=== PATIENT | female | born 1990 | race Hispanic/Latino ===

== ENCOUNTER 2017-12-08 14:15 | Emergency (ER) | payer OTHER ==
[2017-12-08 14:23] VITALS: TEMP 97.7; O2SAT 100
[2017-12-08] MEDS ORDERED: Sodium Chloride 0.9% 2,000 ML IV STA (14:40)
--- NOTE | 2017-12-08 14:42 | ED PDOC ---
HPI: Abdomen Time Seen by Provider: 12/08/17 14:41 Chief Complaint (Nursing): GI Problem Chief Complaint (Provider): VOMITING/DIARRHEA History Per: Patient (27 Y/O FEMALE HERE WITH VOMITING MULTIPLE EPISODES TODAY ASSOCIATED WITH 2 EPISODES WATERY STOOLS. ADMITS DRINKING ETOH YESTERDAY. NO OBVIOUS FOOD ASSOCIATION. NO FEVERS/CHILLS./COUGH/DYSURIA. NO H/O ABD SX.) Past Medical History Reviewed: Historical Data, Nursing Documentation, Vital Signs Vital Signs: Last Vital Signs Temp 97.7 F 12/08/17 14:20 Pulse 76 12/08/17 16:57 Resp 16 12/08/17 16:57 BP 109/57 L 12/08/17 16:57 Pulse Ox 100 12/08/17 16:57 - Family History Family History: States: No Known Family Hx - Home Medications Home Medications: Ambulatory Orders Medication Instructions Recorded Famotidine [Pepcid] 20 mg PO BID #10 tab 12/08/17 Ondansetron ODT [Zofran ODT] 4 mg PO Q8 PRN #8 odt 12/08/17 - Allergies Allergies/Adverse Reactions: Allergies Allergy/AdvReac Type Severity Reaction Status Date / Time No Known Allergies Allergy Verified 12/08/17 14:20 Review of Systems ROS Statement: Except As Marked, All Systems Reviewed And Found Negative Gastrointestinal: Positive for: Vomiting, Abdominal Pain, Diarrhea Physical Exam - Reviewed Nursing Documentation Reviewed: Yes Vital Signs Reviewed: Yes - Physical Exam Appears: Positive for: Well, Non-toxic, No Acute Distress Head Exam: Positive for: ATRAUMATIC, NORMAL INSPECTION, NORMOCEPHALIC Skin: Positive for: Normal Color, Warm, DRY Eye Exam: Positive for: EOMI, Normal appearance, PERRL ENT: Positive for: Normal ENT Inspection Neck: Positive for: Normal, Painless ROM Cardiovascular/Chest: Positive for: Regular Rate, Rhythm Respiratory: Positive for: CNT, Normal Breath Sounds Gastrointestinal/Abdominal: Positive for: Normal Exam, Soft Back: Positive for: Normal Inspection Extremity: Positive for: Normal ROM Neurologic/Psych: Positive for: Alert, Oriented - Laboratory Results Result Diagrams: 12/08/17 14:48 12/08/17 14:48 - ECG O2 Sat by Pulse Oximetry: 100 - Progress ED Course And Treament: NS 1 LITER WIDE OPEN X 2 LITERS PEPCID 20 MG IV X 1 DOSE ZOFRAN 4 MD ODT Disposition - Clinical Impression Clinical Impression: Gastritis, Gastroenteritis - Patient ED Disposition Is Patient to be Admitted: No - Disposition Disposition: Routine/Home Disposition Time: 17:00 Condition: FAIR Prescriptions: Famotidine [Pepcid] 20 mg PO BID #10 tab Ondansetron ODT [Zofran ODT] 4 mg PO Q8 PRN #8 odt PRN Reason: Nausea/Vomiting Instructions: Gastritis (DC), Ulcer and Gastritis Diet Forms: [facility] ([place]), [facility] ED School/Work Excuse
[2017-12-08 14:57] LABS: BASO % 0.3 % (0.0-2.0); EOS % 0.4 % (0.0-4.0); HEMOGLOBIN 13.2 g/dL (12.0-16.0); LYMPH # 0.9 K/uL (1.0-4.3); MEAN CELL VOLUME 91.9 fl (81.0-99.0); MEAN CORPUSCULAR HEMOGLOBIN 31.4 pg (27.0-31.0); MEAN CORPUSCULAR HGB CONC 34.2 g/dL (33.0-37.0); MONO # 0.3 K/uL (0.0-0.8); MONO % 4.8 % (0.0-10.0); NEUT # 5.9 K/uL (1.8-7.0); NEUT % 81.5 % (50.0-75.0); RBC 4.21 Mil/uL (3.80-5.20); WHITE BLOOD COUNT 7.2 K/uL (4.8-10.8)
[2017-12-08 15:04] LABS: ALB/GLOB RATIO 1.4 (1.0-2.1); ALBUMIN 4.5 g/dL (3.5-5.0); ALT/SGPT 32 U/L (9-52); AST/SGOT 27 U/L (14-36); BLOOD UREA NITROGEN 13 mg/dl (7-17); CALCIUM 9.4 mg/dL (8.4-10.2); GFR AFRICAN-AMERICAN > 60; GFR NON-AFRICAN AMERICAN > 60; LIPASE 106 U/L (23-300)
[2017-12-08 16:57] VITALS: BP 109/57; PULSE 76; RESP 16
== END 2017-12-08 17:15 | disposition home or self-care (01) ==
LOC: H.ER 14:15
DX: K29.70 Gastritis, unspecified, without bleeding (principal); K52.9 Noninfective gastroenteritis and colitis, unspecified
CPT/HCPCS: 80053; 81025; 83690; 83735; 85025; 96361; 96374; 99284; J7040